=== PATIENT | male | born 1985 | race African-American/Black ===

== ENCOUNTER 2018-12-27 18:38 | Emergency (ER) | payer OTHER ==
[2018-12-27] MEDS ORDERED: Fluorescein Sodium TOPICAL* 1 MG TEST STRIP OPHTHALMIC ONE ×2 (18:40→19:11)
[2018-12-27] MEDS ORDERED: Tetracaine 0.5% OPTH.SOL 4 ML* 1 DROP BTL BOTH EYES ONE (18:40)
--- NOTE | 2018-12-27 18:43 | UC ---
Eye Complaint HPI - HPI Summary HPI Summary: 33 yo male presents with RIGHT eye itchiness and FB sensation since yesterday. He tells me that he was walking back into the house after taking the garbage out and felt a bug or something hit his right eye. Since that time has had itchiness and FB sensation with clear/yellow drainage. He looked in the mirror today and says that he saw something in the upper eye near the eyelid. He does wear glasses, but no contacts. No pain in the eye. - History of Current Complaint Stated Complaint: FORIEGN OBJECT IN EYE Time Seen by Provider: 12/27/18 18:43 Hx Obtained From: Patient Onset/Duration: Sudden Onset Timing: Constant Severity Initially: Mild Severity Currently: Mild Pain Intensity: 4 Pain Scale Used: 0-10 Numeric - Allergies/Home Medications Allergies/Adverse Reactions: Allergies Allergy/AdvReac Type Severity Reaction Status Date / Time No Known Allergies Allergy Verified 12/27/18 18:57 PMH/Surg Hx/FS Hx/Imm Hx Psychological History: Depression, Bipolar Disorder, Schizophrenia - Surgical History Surgical History: None - Family History Known Family History: Positive: Hypertension - Social History Lives: With Family Alcohol Use: None Substance Use Type: None Smoking Status (MU): Never Smoked Tobacco Review of Systems All Other Systems Reviewed And Are Negative: Yes Constitutional: Positive: Negative Skin: Positive: Negative Eyes: Positive: Drainage, Eye Redness ENT: Positive: Negative Respiratory: Positive: Negative Cardiovascular: Positive: Negative Neurovascular: Positive: Negative Neurological: Positive: Negative Psychological: Positive: Negative Physical Exam - Summary Physical Exam Summary: GENERAL: WDWN. No pain distress. SKIN: No rashes, sores, lesions, or open wounds. HEENT: Head: AT/NC Eyes: EOM intact. PERRLA. RIGHT EYE: Mild scleral injection. Conjunctiva with mild erythema and inflammation. Mild clear/yellow discharge. No FBs appreciated. Fluorescein exam revealed no abrasion, violetta sign, or areas of increased uptake. NECK: Supple. Nontender. No lymphadenopathy. CHEST: No accessory muscle use. Breathing comfortably and in no distress. CV: Pulses intact. Cap refill <2seconds NEURO: Alert. PSYCH: Age appropriate behavior. Triage Information Reviewed: Yes Vital Signs: Vital Signs: Temp Pulse Resp BP Pulse Ox 98.8 F 109 18 95 12/27/18 18:54 12/27/18 18:54 12/27/18 18:54 12/27/18 18:54 Vital Signs Reviewed: Yes Eye Complaint Course/Dx - Course Course Of Treatment: Tetracaine instilled into eye and dye exam normal. Pt still having itchy sensation in eye and adamant that there is something in there. I discussed with him that I do not appreciated any FB or corneal abrasion. I asked Dr. Quinonez to take a look in pt's eye - he performed an exam with and without dye, flushed the eye with 10mL NS, and agreed with my interpretation of no FB. We discussed this with pt. I will treat him for conjunctivitis using erythromycin ointment as he does not like drops very much. Encouraged to f/u with Dr. Villanueva for a recheck within the next 4 days. - Differential Dx/Diagnosis Provider Diagnosis: Conjunctivitis Discharge - Sign-Out/Discharge Documenting (check all that apply): Patient Departure All imaging exams completed and their final reports reviewed: No Studies - Discharge Plan Condition: Stable Disposition: HOME Prescriptions: Erythromycin TOPICAL GEL* [Erythromycin OPTH OINT*] 1 applic TOPICAL TID #1 tube Patient Education Materials: Conjunctivitis (ED) Referrals: No Primary Care Phys,NOPCP [Primary Care Provider] - Mark Villanueva MD [Medical Doctor] - As Soon As Possible Additional Instructions: If you develop a fever, shortness of breath, chest pain, new or worsening symptoms - please call your PCP or go to the ED immediately. Please call Dr. Villanueva at the number below to schedule an appointment for a recheck of your eye as soon as possible - Billing Disposition and Condition Condition: STABLE Disposition: Home
[2018-12-27] MEDS ORDERED: Fluorescein Sodium TOPICAL* 1 MG TEST STRIP ONE (19:12)
--- NOTE | 2018-12-27 19:19 | CONSULT ---
Consult Consult: I supervised the care of the physician malt specifications control assistant and I performed a history and physical on this patient. History: Foreign body sensation in the right eye with redness and discharge. No contacts. Physical exam: Conjunctival injection with no fluorescein uptake and a stringy discharge. No foreign body with lid eversion. No pain with light reaction. Plan: Treat as conjunctivitis. Follow-up ophthalmology/optometry.
== END 2018-12-27 19:40 | disposition home or self-care (01) ==
LOC: UCEAST 18:38
DX: H10.9 Unspecified conjunctivitis (principal)
CPT/HCPCS: 99212; A9270-GY; G0463

== ENCOUNTER 2019-06-09 16:52 | Emergency (ER) | payer OTHER ==
[2019-06-09 17:08] VITALS: BP 129/81
[2019-06-09] MEDS ORDERED: Erythromycin OPTH OINT* APPLIC OINT RIGHT EYE ONE (17:25)
--- NOTE | 2019-06-09 17:35 | UC ---
Eye Complaint HPI - HPI Summary HPI Summary: right eye, itches red. denies drainage, denies any trauma. started today area is painful - History of Current Complaint Chief Complaint: UCEye Stated Complaint: EYE IRRITATION Time Seen by Provider: 06/09/19 17:11 Hx Obtained From: Patient Onset/Duration: Sudden Onset, Lasting Hours Timing: Constant Severity Initially: Severe Severity Currently: Severe Pain Intensity: 7 Location of Injury: Conjunctiva, Sclera - Allergies/Home Medications Allergies/Adverse Reactions: Allergies Allergy/AdvReac Type Severity Reaction Status Date / Time No Known Allergies Allergy Verified 06/09/19 17:08 Home Medications: Home Medications Risperidone [Risperdal] 0.5 mg PO BEDTIME 06/09/19 [History Confirmed 06/09/19] PMH/Surg Hx/FS Hx/Imm Hx Previously Healthy: Yes - Surgical History Surgical History: None - Family History Known Family History: Positive: Hypertension - Social History Alcohol Use: None Substance Use Type: None Smoking Status (MU): Never Smoked Tobacco - Immunization History Most Recent Tetanus Shot: unknown Review of Systems All Other Systems Reviewed And Are Negative: Yes Eyes: Positive: Drainage - clear, Eye Redness, Photophobia Is Patient Immunocompromised?: No Physical Exam Triage Information Reviewed: Yes Appearance: Well-Appearing, Pain Distress, Obese Vital Signs: Initial Vital Signs Temp 98.3 F 06/09/19 17:01 Pulse 94 06/09/19 17:01 Resp 18 06/09/19 17:01 BP 129/81 06/09/19 17:01 Pulse Ox 100 06/09/19 17:01 Vital Signs Reviewed: Yes Eyes: Positive: Conjunctiva Inflamed, Discharge - clear tears, EOMI, Perrla ENT: Positive: Pharynx normal, TMs normal Dental Exam: Normal Neck exam: Normal Respiratory Exam: Normal Respiratory: Positive: Chest non-tender, Lungs clear, Normal breath sounds Cardiovascular Exam: Normal Cardiovascular: Positive: RRR, No Murmur, Pulses Normal Abdominal Exam: Normal Bowel Sounds: Positive: Present Musculoskeletal Exam: Normal Neurological Exam: Normal Psychological Exam: Normal Skin Exam: Normal Eye Complaint Course/Dx - Course Course Of Treatment: hx obtained, exam performed ,meds reviewed, given abx for eye, but not certain this is bacterial. have referred to [facility] for follow up. - Differential Dx/Diagnosis Differential Diagnosis/HQI/PQRI: Conjunctivitis, Corneal Abrasion, Keratitis Provider Diagnosis: Scleral injection, Acute right eye pain Discharge ED - Sign-Out/Discharge Documenting (check all that apply): Patient Departure All imaging exams completed and their final reports reviewed: No Studies - Discharge Plan Condition: Stable Disposition: HOME Patient Education Materials: Eye Pain (ED) Referrals: No Primary Care Phys,NOPCP [Primary Care Provider] - Mark Villanueva MD [Medical Doctor] - Additional Instructions: Use the erythromycin cream trhee times a day as prescribed. I have a high suspicion this is not a bacterial infection and recommend that you follow up with Dr Villanueva's office tomorrow morning. if pain or visula disturbances increase over the night, please follow up in the ER. - Billing Disposition and Condition Condition: STABLE Disposition: Home - Attestation Statements Provider Attestation: I was available for consult. This patient was seen by the DANISHA. The patient was not presented to, seen by, or examined by me. -Radha
== END 2019-06-09 17:40 | disposition home or self-care (01) ==
LOC: UCEAST 16:52
DX: H57.11 Ocular pain, right eye (principal); H57.89 Other specified disorders of eye and adnexa; H53.141 Visual discomfort, right eye
CPT/HCPCS: 99212; A9270-GY; G0463

== ENCOUNTER 2024-04-10 17:28 | Inpatient (IN) ==
[2024-04-10 18:29] LABS: Hematocrit 30.9 % (38-53); Hemoglobin 10.1 g/dL (13.2-16.3); INR 1.46 (0.85-1.14); Mean Corpuscular Hemoglobin 23.7 pg (27-33); Mean Corpuscular Hgb Conc 32.7 g/dL (31-36); Mean Corpuscular Volume 72.3 fL (80-97); Platelet Count 491 10^3/uL (150-450); Red Blood Count 4.28 10^6/uL (4.06-5.63); Red Cell Distribution Width 15.7 % (12-17); White Blood Count 12.7 10^3/uL (3.6-10.2)
[2024-04-10] MEDS: Lactated Ringers SEPSIS* BAG 2,190 ML IV ONE (18:30)
[2024-04-10 18:38] LABS: Venous Bicarbonate HCO3 27.6 mmol/L (24-28)
[2024-04-10] MEDS ORDERED: Cefepime 1 GM in Dextrose 1 GM/50 ML BAG IV ONE (18:38)
[2024-04-10 18:45] LABS: Albumin 3.4 g/dL (3.2-5.2); Calcium 8.4 mg/dL (8.6-10.3); Creatinine, Serum 0.98 mg/dL (0.67-1.17); Globulin 3.4 g/dL (2-4); Potassium 4.6 mmol/L (3.5-5.0); Total Bilirubin 0.4 mg/dL (0.2-1.0); Total Protein 6.8 g/dL (6.4-8.9); eGFR CKD-EPI 101.2 (>60)
[2024-04-10] MEDS: cefTRIAXone 1 gm/50 mL D5W 1 GM/50 ML BAG IV ONE (19:01)
[2024-04-10] MEDS: methylPREDNISolone SOD SUCC 125 mg 2 ML VIAL IV ONE (19:01)
[2024-04-10 19:14] LABS: ABS Basophils 0.2 10^3/uL (0.0-0.1); ABS Lymphocytes 0.9 10^3/uL (1.0-4.8); ABS Monocytes 1.1 10^3/uL (0.0-1.1); ABS Neutrophils 10.6 10^3/uL (1.5-7.6); ABS Nucleated RBC 0.01 10^3/ul; Anisocytosis 1+; Eosinophil % 0.3 %; Lymphocyte % 6.8 %; Microcytosis 2+; Nucleated Red Blood Cells % 0.1 %/100WBC (0.0-0.8)
[2024-04-10 19:48] LABS: High Sensitivity Troponin 1 Hr 18 pg/mL (<20)
[2024-04-10] MEDS: Albuterol/Ipratropium NEB.SOL (2.5/0.5 MG) 3 ML NEB.SOLN INH PRN (19:59)
[2024-04-10] MEDS: Azithromycin 500 mg/250 ml NS 500 MG/250 ML BAG IVPB ONE (19:59)
[2024-04-10] MEDS: Doxepin 10 mg CAP (NF) PO ONE (21:41)
[2024-04-10] MEDS ORDERED: Dextrose 50% Syringe 50 ml 25 GM/50 ML SYRINGE IV PUSH PRN (22:04)
[2024-04-10] MEDS: Doxepin 25 mg CAP (NF) PO ONE (22:20)
[2024-04-10] MEDS: Iodixanol (CONTRAST) 320 MG/ML 100 ML SDV IV ONE (22:47)
[2024-04-10] MEDS: cefTRIAXone 1 gm/50 mL D5W 1 GM/50 ML BAG IV SCH (22:50)
[2024-04-10] MEDS: Enoxaparin 40 MG/0.4 ML SYR SUBCUT SCH (23:56)
[2024-04-11] LABS: Urine Appearance Clear; Urine Bilirubin Negative (Negative); Urine Blood Negative (Negative); Urine Color Colorless; Urine Glucose 3+ (>=300 mg/dL) (Negative); Urine Ketones Negative (Negative); Urine Nitrite Negative (Negative); Urine Protein Trace (Negative); Urine Specific Gravity 1.013 (1.002-1.030); Urine Urobilinogen Negative (Negative); Urine pH 6.5 (5.0-8.0)
[2024-04-11] MEDS: Lactated Ringers 1000 ml BAG 1,000 ML IV SCH (01:29)
[2024-04-11 07:02] LABS: % Iron Saturation 10 % (15-55); .Transferrin 141 mg/dL (203-362); ABS Lymphocytes 0.8 10^3/uL (1.0-4.8); ABS Monocytes 0.5 10^3/uL (0.0-1.1); ABS Neutrophils 9.4 10^3/uL (1.5-7.6); Anion Gap 11 mmol/L (2-16); Blood Urea Nitrogen 11 mg/dL (6-24); CO2 Carbon Dioxide 26 mmol/L (22-32); Calcium 8.5 mg/dL (8.6-10.3); Chloride 98 mmol/L (101-111); Creatinine, Serum 0.74 mg/dL (0.67-1.17); Glucose 315 mg/dL (70-100); Hematocrit 31.3 % (38-53); Hemoglobin 10.6 g/dL (13.2-16.3); Iron < 20 ug/dL (50-212); Lymphocyte % 7.2 %; Magnesium 2.1 mg/dL (1.9-2.7); Mean Corpuscular Hemoglobin 24.4 pg (27-33); Mean Corpuscular Hgb Conc 33.8 g/dL (31-36); Mean Corpuscular Volume 72.1 fL (80-97); Mean Platelet Volume 7.8 fL (7.5-11.2); Platelet Count 496 10^3/uL (150-450); Potassium 4.8 mmol/L (3.5-5.0); Red Blood Count 4.33 10^6/uL (4.06-5.63); Red Cell Distribution Width 15.6 % (12-17); Sodium 135 mmol/L (135-145); Total Iron Binding Capacity 197 mcg/dL (250-450); Unsaturated Iron Binding 177 ug/dL; White Blood Count 10.7 10^3/uL (3.6-10.2); eGFR CKD-EPI 118.9 (>60)
[2024-04-11 07:23] LABS: Ferritin 400.4 ng/mL (24-336)
[2024-04-11 07:27] LABS: Folate 15.52 ng/mL (5.90-24.80); Vitamin B12 755 pg/mL (180-914)
[2024-04-11 10:24] LABS: HIV 4th Generation Nonreactive (Nonreactive)
[2024-04-11] MEDS: cefTRIAXone 1 gm/50 mL D5W 1 GM/50 ML BAG IV SCH (21:07)
[2024-04-11] MEDS: CMCS:Doxepin 25 mg CAP (NF) PO SCH (21:12)
[2024-04-11] MEDS: Azithromycin 500 mg/250 ml NS 500 MG/250 ML BAG IVPB SCH (22:17)
[2024-04-12 07:51] LABS: ABS Basophils 0.1 10^3/uL (0.0-0.1); ABS Eosinophils 0.1 10^3/uL (0.0-0.5); ABS Lymphocytes 1.3 10^3/uL (1.0-4.8); ABS Monocytes 0.8 10^3/uL (0.0-1.1); ABS Nucleated RBC 0.01 10^3/ul; Eosinophil % 0.6 %; Hematocrit 30.5 % (38-53); Hemoglobin 9.9 g/dL (13.2-16.3); Lymphocyte % 10.9 %; Mean Corpuscular Hgb Conc 32.6 g/dL (31-36); Mean Corpuscular Volume 73.7 fL (80-97); Mean Platelet Volume 7.9 fL (7.5-11.2); Nucleated Red Blood Cells % 0.1 %/100WBC (0.0-0.8); Platelet Count 516 10^3/uL (150-450); Red Blood Count 4.14 10^6/uL (4.06-5.63); Red Cell Distribution Width 16.1 % (12-17); White Blood Count 12.3 10^3/uL (3.6-10.2)
[2024-04-12 08:07] LABS: Calcium 8.1 mg/dL (8.6-10.3); Creatinine, Serum 0.96 mg/dL (0.67-1.17); Magnesium 1.8 mg/dL (1.9-2.7); Potassium 4.8 mmol/L (3.5-5.0); eGFR CKD-EPI 103.8 (>60)
[2024-04-12] MEDS: Magnesium Sulfate 2 gm BAG 2 GM/50 ML BAG IVPB ONE (09:23)
[2024-04-13 05:45] LABS: ABS Basophils 0.1 10^3/uL (0.0-0.1); ABS Eosinophils 0.1 10^3/uL (0.0-0.5); ABS Lymphocytes 1.5 10^3/uL (1.0-4.8); ABS Monocytes 0.8 10^3/uL (0.0-1.1); Eosinophil % 0.9 %; Hematocrit 32.3 % (38-53); Hemoglobin 10.8 g/dL (13.2-16.3); Mean Corpuscular Hemoglobin 24.6 pg (27-33); Mean Corpuscular Hgb Conc 33.4 g/dL (31-36); Mean Corpuscular Volume 73.5 fL (80-97); Mean Platelet Volume 7.5 fL (7.5-11.2); Platelet Count 574 10^3/uL (150-450); Red Cell Distribution Width 15.9 % (12-17); White Blood Count 9.5 10^3/uL (3.6-10.2)
[2024-04-13 06:06] LABS: Calcium 8.6 mg/dL (8.6-10.3); Creatinine, Serum 0.84 mg/dL (0.67-1.17); Magnesium 1.9 mg/dL (1.9-2.7); Potassium 4.4 mmol/L (3.5-5.0); eGFR CKD-EPI 114.5 (>60)
[2024-04-13] MEDS: Enoxaparin 40 MG/0.4 ML SYR SUBCUT SCH (21:29)
[2024-04-14 06:45] LABS: ABS Basophils 0.1 10^3/uL (0.0-0.1); ABS Eosinophils 0.1 10^3/uL (0.0-0.5); ABS Lymphocytes 1.2 10^3/uL (1.0-4.8); ABS Monocytes 0.7 10^3/uL (0.0-1.1); ABS Neutrophils 6.5 10^3/uL (1.5-7.6); Eosinophil % 0.8 %; Hematocrit 33.2 % (38-53); Hemoglobin 11.2 g/dL (13.2-16.3); Lymphocyte % 14.1 %; Mean Corpuscular Hemoglobin 25.4 pg (27-33); Mean Corpuscular Hgb Conc 33.8 g/dL (31-36); Mean Platelet Volume 7.8 fL (7.5-11.2); Platelet Count 580 10^3/uL (150-450); Red Blood Count 4.43 10^6/uL (4.06-5.63); Red Cell Distribution Width 15.9 % (12-17); White Blood Count 8.5 10^3/uL (3.6-10.2)
[2024-04-14 06:47] LABS: C Reactive Protein 98.12 mg/L (<8.01); Creatinine, Serum 0.96 mg/dL (0.67-1.17); Magnesium 1.9 mg/dL (1.9-2.7); Potassium 4.8 mmol/L (3.5-5.0); eGFR CKD-EPI 103.8 (>60)
[2024-04-14 10:10] VITALS: BP 143/84
== END 2024-04-14 13:20 | disposition home or self-care (01) | DRG 871 ==
LOC: ED 17:28 → EDHOLD 17:28 → MEDTELE 21:57 → SUATTDRO 21:57 → OBSVTOIN 21:57 → MEDTELE 23:07
PROVIDERS: ADMIT Student in an Organized Health Care Education/Training Program; ATTEND Student in an Organized Health Care Education/Training Program